=== PATIENT | male | born 1990 | race Caucasian/White ===

== ENCOUNTER 2025-06-06 11:44 | Emergency (ER) | payer OTHER ==
[~2025-06-06] VITALS: Ht 175.3 cm; Wt 100.0 kg
[2025-06-06 13:09] VITALS: TEMP 98; O2SAT 95
[2025-06-06] MEDS ORDERED: CEPH-558 PO (14:13)
[2025-06-06] MEDS ORDERED: TRAM50TA5 PO (14:13)
[2025-06-06] MEDS: BACITRACIN 28 GM OINTMENT TP ONE (15:23)
[2025-06-06] MEDS: PERTUSS(ACELL),DIPH,TET/PF 0.5 ML SYRINGE [ADULT] IM. ONE (15:24)
[2025-06-06 15:36] VITALS: BP 127/76; PULSE 77; RESP 16
== END 2025-06-06 16:13 | disposition home or self-care (01) ==
LOC: EMS 11:44
DX: T25.232A Burn of second degree of left toe(s) (nail), initial encounter (principal); F17.210 Nicotine dependence, cigarettes, uncomplicated; X08.8XXA Exposure to other specified smoke, fire and flames, initial encounter; Y93.G3 Activity, cooking and baking; Y92.89 Other specified places as the place of occurrence of the external cause; Y99.8 Other external cause status
CPT/HCPCS: 99284; 90715; 16020; 90471; 96372; J0690